=== PATIENT | female | born 1990 | race American Indian/Alaskan Native ===

== ENCOUNTER 2019-05-01 14:13 | Emergency (ER) | payer OTHER ==
--- NOTE | 2019-05-01 14:36 | Emergency Department Report ---
Blank Doc - Documentation Documentation: 28-year-old female that presents with URI symptoms and subjective fevers. This initial assessment/diagnostic orders/clinical plan/treatment(s) is/are subject to change based on patient's health status, clinical progression and re- assessment by fellow clinical providers in the ED. Further treatment and workup at subsequent clinical providers discretion. Patient/guardians urged not to elope from the ED as their condition may be serious if not clinically assessed and managed. Initial orders include: 1- Patient sent to [facility] for further evaluation and treatment 2- CXR
[2019-05-01 14:38] VITALS: BP 113/80
--- NOTE | 2019-05-01 15:29 | Emergency Department Report ---
- General Chief Complaint: Upper Respiratory Infection Stated Complaint: FLU SX Time Seen by Provider: 05/01/19 14:35 Source: patient Mode of arrival: Ambulatory Limitations: No Limitations - History of Present Illness Initial Comments: 28-year-old female with no significant past medical history presents to the ER today complaining of flulike symptoms. She states that the symptoms started 4-5 days ago. She reports mild productive cough, clear rhinorrhea, headache, generalized muscle aches and 3 days ago she started with subjective fever and chills. She reports decrease appetite and sometimes nausea when she tried to drink fluids. She has been around other kids who has had colds. She denies any , vomiting, diarrhea or abdominal pain. She denies any UTI symptoms. Last menstrual cycle is currently on now. She reports no other symptoms at this time MD Complaint: fever, cough, sore throat, rhinorrhea, nasal congestion -: Gradual, days(s) (4-5 days ago ) - Related Data Previous Rx's Medication Instructions Recorded Last Taken Type Benzonatate [Tessalon Perles] 100 mg PO Q8HR PRN #30 capsule 05/01/19 Unknown Rx Fexofenadine/Pseudoephedrine 1 each PO BID #20 tab.er.12h 05/01/19 Unknown Rx [Davina-D 12 Hour Tablet] Ketorolac [Toradol] 10 mg PO Q6H PRN #30 tablet 05/01/19 Unknown Rx Ondansetron [Zofran Odt] 4 mg PO Q8HR PRN #15 tab.rapdis 05/01/19 Unknown Rx Allergies Allergy/AdvReac Type Severity Reaction Status Date / Time No Known Allergies Allergy Unverified 05/01/19 14:35 ED Review of Systems ROS: Stated complaint: FLU SX Other details as noted in HPI Comment: All other systems reviewed and negative Constitutional: chills, fever ENT: congestion, other (Rhinorrhea). denies: ear pain, throat pain Respiratory: cough. denies: shortness of breath, SOB with exertion, SOB at rest, stridor, wheezing Cardiovascular: denies: chest pain, dyspnea on exertion, edema, paroxysmal nocturnal dyspnea Gastrointestinal: nausea. denies: abdominal pain, vomiting, diarrhea, constipation, hematemesis Genitourinary: denies: urgency, dysuria, frequency, hematuria, discharge, abnormal menses Musculoskeletal: myalgia Neurological: headache ED Past Medical Hx - Past Medical History Previous Medical History?: No - Surgical History Past Surgical History?: No - Social History Smoking Status: Never Smoker Substance Use Type: None - Medications Home Medications: Home Medications Medication Instructions Recorded Confirmed Last Taken Type Benzonatate [Tessalon Perles] 100 mg PO Q8HR PRN #30 capsule 05/01/19 Unknown Rx Fexofenadine/Pseudoephedrine 1 each PO BID #20 tab.er.12h 05/01/19 Unknown Rx [Davina-D 12 Hour Tablet] Ketorolac [Toradol] 10 mg PO Q6H PRN #30 tablet 05/01/19 Unknown Rx Ondansetron [Zofran Odt] 4 mg PO Q8HR PRN #15 tab.rapdis 05/01/19 Unknown Rx ED Physical Exam - General Limitations: No Limitations General appearance: alert, in no apparent distress - Head Head exam: Present: atraumatic, normocephalic - Eye Eye exam: Present: normal appearance, PERRL, EOMI - Expanded ENT Exam Expanded TM/Canal exam: Effusion: Right TM, Left TM Throat exam: Positive: tonsillar erythema, tonsillomegaly. Negative: tonsillar exudate - Neck Neck exam: Present: normal inspection, full ROM, lymphadenopathy. Absent: meningismus - Respiratory Respiratory exam: Present: normal lung sounds bilaterally. Absent: respiratory distress, rales, rhonchi, stridor - Cardiovascular Cardiovascular Exam: Present: regular rate, normal rhythm, normal heart sounds - GI/Abdominal GI/Abdominal exam: Present: soft. Absent: tenderness, guarding - Extremities Exam Extremities exam: Present: full ROM - Back Exam Back exam: Present: full ROM - Neurological Exam Neurological exam: Present: alert, oriented X3, CN II-XII intact - Psychiatric Psychiatric exam: Present: normal affect, normal mood - Skin Skin exam: Present: intact ED Course Vital Signs 05/01/19 14:36 Temperature 99.7 F H Pulse Rate 100 H Respiratory 18 Rate Blood Pressure 113/80 O2 Sat by Pulse 100 Oximetry ED Medical Decision Making - Radiology Data Radiology results: report reviewed atient: ANGELINE LARKIN MR#: [id number] : 1990 Acct:[id number] Age/Sex: 28 / F ADM Date: 05/01/19 Loc: ED Attending Dr: Ordering Physician: SUSAN HINOJOSA NP Date of Service: 05/01/19 Procedure(s): XR chest routine 2V Accession Number(s): [id number] cc: SUSAN HINOJOSA NP Fluoro Time In Minutes: CHEST 2 VIEWS INDICATION: cough. COMPARISON: None. FINDINGS: Support devices: None. Heart: Within normal limits. Pulmonary vasculature: Normal. Lungs/pleura: No acute air space or interstitial disease. No pneumothorax. Additional findings: None. IMPRESSION: Normal chest Signer Name: Norman Ward MD Signed: 05/01/2019 3:36 PM Workstation Name: [id number] Transcribed By: REF Dictated By: NORMAN WARD MD Electronically Authenticated By: NORMAN WARD MD Signed Date/Time: 05/01/191535 DD/ 34 TD/TT: - Medical Decision Making Pt presents to ED c/o URI/Flu like symptosm x 4-5 days. Pt is not toxic or ill appearing, she is in no pain or respiratory distress, Her vs are stable. She appears well hydrated. cxr reviewed and normal. She is neurologically intact. Suspect viral syndrome a this time. No further w/u indicated at this time. Discussed suspected dx and treatment plan with patient. She is stable at this time. She understands to return to ED if worse. Critical care attestation.: If time is entered above; I have spent that time in minutes in the direct care of this critically ill patient, excluding procedure time. ED Disposition Clinical Impression: Viral syndrome Disposition: DC-01 TO HOME OR SELFCARE Is pt being admited?: No Does the pt Need Aspirin: No Condition: Stable Instructions: Viral Syndrome (ED) Prescriptions: Fexofenadine/Pseudoephedrine [Davina-D 12 Hour Tablet] 1 each PO BID #20 tab.er.12h Benzonatate [Tessalon Perles] 100 mg PO Q8HR PRN #30 capsule PRN Reason: Cough Ketorolac [Toradol] 10 mg PO Q6H PRN #30 tablet PRN Reason: Pain , Severe (7-10) Ondansetron [Zofran Odt] 4 mg PO Q8HR PRN #15 tab.rapdis PRN Reason: Nausea Referrals: KERA BRAUN MD [Staff Physician] - 3-5 Days Forms: Work/School Release Form(ED) Time of Disposition: 15:56
--- NOTE | 2019-05-01 15:40 | XRay Report ---
CHEST 2 VIEWS INDICATION: cough. COMPARISON: None. FINDINGS: Support devices: None. Heart: Within normal limits. Pulmonary vasculature: Normal. Lungs/pleura: No acute air space or interstitial disease. No pneumothorax. Additional findings: None. IMPRESSION: Normal chest Signer Name: Jacob Lopez MD Signed: 05/01/2019 3:36 PM Workstation Name: [id number]
[2019-05-01] MEDS ORDERED: KETOROLAC 10 MG TAB PO ONE (16:28)
== END 2019-05-01 16:12 | disposition home or self-care (01) ==
LOC: ED 14:13
DX: B34.9 Viral infection, unspecified (principal); Z79.899 Other long term (current) drug therapy
CPT/HCPCS: 71046

== ENCOUNTER 2020-10-30 06:00 | Day surgery (SDC) | payer BC, OTHER ==
--- NOTE | 2020-10-29 17:28 | History and Physical Report ---
History of Present Illness Date of examination: 10/27/20 Chief complaint: Demise History of present illness: Pt is a 30 year old female LMP 07/11/20 at 15w5d presents for surgical management of demise at 14 wks noted on ultrasound on 10/27/20. Past History Past Medical History: no pertinent history Past Surgical History: section Family/Genetic History: none Social history: no significant social history - Obstetrical History Expected Date of Delivery: 04/17/21 Actual Gestation: 15 Week(s) 5 Day(s) : 3 Para: 2 Hx # Term Pregnancies: 2 Number of Pregnancies: 0 Spontaneous Abortions: 0 Induced : 0 Number of Living Children: 2 Medications and Allergies Allergies Allergy/AdvReac Type Severity Reaction Status Date / Time Penicillins Allergy Rash Verified 10/28/20 17:10 Home Medications Medication Instructions Recorded Confirmed Last Taken Type No Known Home Medications [No 10/28/20 10/28/20 Unknown History Reported Home Medications] Review of Systems All systems: negative - Physical Exam Breasts: Positive: deferred Abdomen: Positive: soft Results All other labs normal. Ultrasound: report reviewed Assessment and Plan A: Demise RH Negative P: Proceed with suction dilation and evacuation and other indicated procedures Rhogam postop
[~2020-10-30 06:00] MED LIST: DOXYCYCLINE HYCLATE 100 MG in SODIUM CHLORIDE 0.9% 250ML 250 ML IV NR; LACTATED RINGERS 1,000 ML IV SCH; METHYLERGONOVINE MALEATE 0.2 MG/ML VIAL IM NR; miSOPROStol 200 MCG TAB PR NR
[2020-10-30 06:55] LABS: Hematocrit 34.9 % (30.3-42.9); Mean Corpuscular HGB Conc 34 % (30-34); Mean Corpuscular Volume 97 fl (79-97); Platelet Count 193 K/mm3 (140-440); Red Blood Count 3.61 M/mm3 (3.65-5.03); Red Cell Distribution Width 13.6 % (13.2-15.2)
--- NOTE | 2020-10-30 07:17 | Anesthesia Consultation ---
Anesthesia Consult and Med Hx Date of service: 10/30/20 - Airway Anesthetic Teeth Evaluation: Good ROM Head & Neck: Adequate Mental/Hyoid Distance: Adequate Mallampati Class: Class I Intubation Access Assessment: Good - Pre-Operative Health Status ASA Pre-Surgery Classification: ASA1 Proposed Anesthetic Plan: General - Pulmonary Hx Smoking: Yes (Former) - Central Nervous System Hx Psychiatric Problems: No - Other Systems Hx Cancer: No Hx Obesity: No
--- NOTE | 2020-10-30 07:17 | Anesthesia Day of Surgery ---
Anesthesia Day of Surgery - Day of Surgery Patient Examined: Yes Patient H&P Reviewed: Yes Patient is NPO: Yes
[2020-10-30] MEDS ORDERED: LIDOCAINE MPF (2%) 20 MG/1 ML VIAL 5 ML ONE (07:20)
[2020-10-30] MEDS ORDERED: propofoL 200 MG/20 ML VIAL IV ONE (07:20)
[2020-10-30] MEDS ORDERED: FAMOTIDINE 20 MG/2 ML INJ IV ONE (07:28)
[2020-10-30] MEDS ORDERED: ONDANSETRON 4 MG/2 ML INJ IV PRN (07:30)
[2020-10-30] MEDS ORDERED: HYDROmorphone 1 MG/1 ML INJ IV PRN ×2 (07:30)
[2020-10-30] MEDS ORDERED: SILVER NITRATE APPLICATOR 1 EA TP ONE (07:39)
[2020-10-30] MEDS ORDERED: ONDANSETRON 4 MG/2 ML INJ ONE (07:49)
[2020-10-30] MEDS ORDERED: dexAMETHasone 20 MG/5 ML VIAL ONE (07:49)
[2020-10-30] MEDS ORDERED: MIDAZOLAM 2 MG/2 ML INJ IV NR (08:00)
[2020-10-30] MEDS ORDERED: miSOPROStol 100 MCG TAB PR ONE (08:25)
[2020-10-30] MEDS ORDERED: KETOROLAC 30 MG/1 ML INJ ONE (08:38)
--- NOTE | 2020-10-30 08:43 | Operative Report ---
Operative Report Operative Report: Date of procedure: October 30, 2020 Preoperative diagnosis: Missed at 14 wks Postoperative diagnosis: Same Procedure: Suction Dilation and Evacuation Surgeon: Claire Romero MD Anesthesia: GETA Findings: 1) Anteverted uterus sounding to 14 cm EBL: 200 mL Urine output: 20 mL, clear, prior to procedure Specimens: Products of conception to pathology Drains: None Complications: None. Counts correct x 2 Disposition: Stable to PACU Indication for procedure: Pt is a 30 year old who presents for surgical management of missed at 14 wks. Procedure in detail: After the risks, benefits, alternatives and complications were explained to the patient she gave informed consent for the procedure. She was subsequently taken to the operating room with her IV noted to be running well. She was placed in the dorsal supine position and SCDs were noted to be in place and functioning. General anesthesia was then induced without difficulty. She was then placed in the dorsal lithotomy position and prepped and draped in a normal sterile fashion. A timeout was performed. An exam under anesthesia yielded an anteverted uterus. The bladder was emptied yielding 25 mL of clear urine. A bi-valve speculum was placed into the vagina for visualization of the cervix. A single-tooth tenaculum was placed on the anterior lip of the cervix. The uterus was gently sounded to 14 cm. The cervix was serially dilated to a #41 Camacho dilator. A number 14 rigid suction curette was used to evacuate the uterine cavity under ultrasound guidance. A dose of Methergine 0.2 mg IM was given to ensure hemostasis. All instruments were then removed from the vagina atraumatically. Misoprostol 800 mg was placed per rectum for endured hemostasis. At this time, the procedure was ended. The patient was placed into the dorsal supine position and extubated without difficulty. She was then taken to the PACU in stable condition. All counts were correct x 2.
--- NOTE | 2020-10-30 08:53 | Short Stay Summary ---
Short Stay Documentation Date of service: 10/30/20 - History H&P: dictated Social history: no significant social history - Allergies and Medications Current Medications: Allergies Penicillins Allergy (Verified 10/28/20 17:10) Rash Home Medications Medication Instructions Recorded Confirmed Last Taken Type No Known Home Medications [No 10/28/20 10/28/20 Unknown History Reported Home Medications] Active Medications Hydromorphone HCl (Hydromorphone 1 Mg/1 Ml Inj) 0.25 mg IV Q10MIN PRN PRN Reason: Pain, Moderate (4-6) Stop: 10/30/20 19:00 Hydromorphone HCl (Hydromorphone 1 Mg/1 Ml Inj) 0.5 mg IV Q10MIN PRN PRN Reason: Pain , Severe (7-10) Stop: 10/30/20 19:00 Lactated Ringer's (Lactated Ringers) 1,000 mls @ 75 mls/hr IV DIRECT DANIEL Doxycycline Hyclate 100 mg/ (Sodium Chloride) 250 mls @ 250 mls/hr IV ONCE NR; Protocol Stop: 10/30/20 23:59 Methylergonovine Maleate (Methylergonovine Maleate 0.2 Mg/Ml Vial) 0.2 mg IM ONCE NR Stop: 10/30/20 23:59 Midazolam HCl (Midazolam 2 Mg/2 Ml Inj) 2 mg IV PREOP NR Stop: 10/30/20 23:59 Misoprostol (Misoprostol 200 Mcg Tab) 800 mcg [place] ONCE NR Stop: 10/30/20 23:59 Ondansetron HCl (Ondansetron 4 Mg/2 Ml Inj) 4 mg IV ONCE PRN PRN Reason: Nausea And Vomiting Stop: 10/30/20 16:00 - Physical exam Breasts: deferred - Brief post op/procedure progress note Date of procedure: 10/30/20 Pre-op diagnosis: Missed at 14 wks Post-op diagnosis: same Procedure: Suction dilation and evacuation Anesthesia: GETA Findings: 1) Anteverted uterus sounding to 14 cm Surgeon: TEA FAGAN Estimated blood loss: other (200 mL) Pathology: list (products of conception to pathology) Specimen disposition: to lab Condition: stable - Hospital course Hospital course: Pt underwent suction dilation and evacuation which she tolerated well. She was observed in the PACU until she met discharge criteria. She will follow up in the office next week. - Disposition Condition at discharge: Stable Disposition: DC-01 TO HOME OR SELFCARE - Discharge Diagnoses (1) Missed with demise before 20 completed weeks of gestation Status: Acute (2) Rh negative status during Status: Acute Qualifiers: Trimester: second trimester Qualified Code(s): O26.892 - Other specified related conditions, second trimester; Z67.91 - Unspecified blood type, Rh negative Short Stay Discharge Plan Activity: other (Nothing in vagina, no tub baths, no intercourse for 4 wks ) Weight Bearing Status: Full Weight Bearing Diet: regular Follow up with: PRIMARY MD AUGUSTINA [Primary Care Provider] - 7 Days TEA FAGAN MD [Staff Physician] - 7 Days (Please call to schedule to appt ) Prescriptions: Ibuprofen [Motrin] 800 mg PO Q8HR PRN #30 tablet PRN Reason: Pain, Moderate (4-6) oxyCODONE /ACETAMINOPHEN [Percocet 5/325] 1 tab PO Q6HR PRN #20 tablet PRN Reason: Pain
[2020-10-30 11:17] VITALS: BP 110/60
--- NOTE | 2020-10-30 13:53 | Ultrasound Report ---
US guide intraoperative INDICATION / CLINICAL INFORMATION: demise at 14 wks, need intraop ultrasound. COMPARISON: None available. FINDINGS: cardiovascular technologist provided sonographic guidance for Dr. Romero during D and C for missed abortio n. Post D and C endometrial thickness is 7 mm. Is anterior fibroid measuring 3 cm. Please see procedu re note for details. 20 images and 4 cine clips were obtained/submitted. Signer Name: Nelson Stinson MD Signed: 10/30/2020 1:49 PM Workstation Name: [id number]
--- NOTE | 2020-10-30 15:54 | Post Anesthesia Evaluation ---
- Post Anesthesia Evaluation Patient Participated: Yes Airway Patent: Yes Stable Respiratory Function: Yes Nausea/Vomiting: No Temp > 96.8F: Yes Pain Manageable: Yes Adequeate Hydration: Yes Anesthesia Complications: No Block Receding Appropriately: Not Applicable Patient on Ventilator: No
== END 2020-10-30 11:50 | disposition home or self-care (01) ==
LOC: OR 06:00
PROVIDERS: ATTEND Obstetrics & Gynecology
DX: O02.1 Missed abortion (principal); G43.909 Migraine, unspecified, not intractable, without status migrainosus; Z87.891 Personal history of nicotine dependence; Z88.0 Allergy status to penicillin; Z79.899 Other long term (current) drug therapy; Z98.891 History of uterine scar from previous surgery; Z87.440 Personal history of urinary (tract) infections; Z98.890 Other specified postprocedural states; Z3A.14 14 weeks gestation of pregnancy
CPT/HCPCS: 36415; 59820; 76998; 85027; 85461; 86850; 86900; 86901; 88305; J1100; J1170; J1885; J2210; J2250; J2405; J2704; J2790; J7050; J7120